=== PATIENT | female | born 1985 ===

== ENCOUNTER 2020-11-20 10:00 | Outpatient (REF) | payer BC, SELFPAY ==
--- NOTE | 2020-11-29 13:05 | MHC.AU.ANO ---
Adult Audiological Evaluation Date of Visit: 11/20/20 Reason for Appointment: Patient reports long-standing difficulty hearing from the left ear. She has been seen by [facility] Thro[facility] and has received imaging. An etiology has not been identified. Patient feels the hearing loss has a significant impact on her daily life and has caused communication difficulties. Ear History: Recent Ear Drainage: None Reported Recent Ear Pain: None Reported Family History of Hearing Loss?: Yes: Father Recent Ear Infections: None Reported Ear Infections in Childhood: Both Ears History of Ear Wax Buildup: None Reported Previous Ear Surgery: None Reported Bothersome Tinnitus/Ringing/Noises in Ears: None Reported Ear used on the phone: Right Ear Blocked/Full Sensation in Ear(s): None Reported History of occupational noise exposure?: No History: No Medical History: Medical History: Unremarkable Medical History Otoscopy: Right Ear: Unremarkable Left Ear: Abnormal appearing tympanic membrane Tympanometry: Tympanometry performed due to: To assess integrity of the middle ear system Right Ear: Hypercompliant Middle Ear System (Type Ad) Left Ear: Hypercompliant Middle Ear System (Type Ad) Hearing Evaluation: Transducer(s) Used: Insert Earphones Method: Conventional Audiometry Stimuli Used: Pure Tones Right Ear: Description of Hearing: Normal hearing Left Ear: Description of Hearing: Mild to moderate conductive hearing loss Speech Recognition Threshold (SRT): Method Used: Recorded Lists Stimuli Used: Spondee Words Right Ear: 10 dBHL Left Ear: 30 dBHL Word Discrimination: Method: Recorded Lists Word Lists Used: W-22 Right Ear: 100% at 50 dBHL Left Ear: 100% at 70 dBHL Most Comfortable Level (MCL): Right Ear: 50 dBHL Left Ear: 70 dBHL Recommendations: Audiological re-evaluation in one year. Trial with amplification is recommended. See Hearing Aid Evaluation report for more information. Diagnosis: Primary Diagnosis: H90.12 ConductiveHL, Unilateral Left Ear, W/Unrestricted Contralateral Signature: Provider: J Luis Bardales, [facility]
--- NOTE | 2020-11-29 13:25 | MHC.AU.ANO ---
Adult Audiological Evaluation Date of Visit: 11/20/20 Reason for Appointment: Patient reports long-standing difficulty hearing from the left ear. She has been seen by Ear, Nose, and Throat and has received imaging. An etiology has not been identified. Patient feels the hearing loss has a significant impact on her daily life and has caused communication difficulties. Ear History: Recent Ear Drainage: None Reported Recent Ear Pain: None Reported Family History of Hearing Loss?: Yes: Father Recent Ear Infections: None Reported Ear Infections in Childhood: Both Ears History of Ear Wax Buildup: None Reported Previous Ear Surgery: None Reported Bothersome Tinnitus/Ringing/Noises in Ears: None Reported Ear used on the phone: Right Ear Blocked/Full Sensation in Ear(s): None Reported History of occupational noise exposure?: No History: No Medical History: Medical History: Unremarkable Medical History Otoscopy: Right Ear: Unremarkable Left Ear: Abnormal appearing tympanic membrane Tympanometry: Tympanometry performed due to: To assess integrity of the middle ear system Right Ear: Hypercompliant Middle Ear System (Type Ad) Left Ear: Hypercompliant Middle Ear System (Type Ad) Hearing Evaluation: Transducer(s) Used: Insert Earphones Method: Conventional Audiometry Stimuli Used: Pure Tones Right Ear: Description of Hearing: Normal hearing Left Ear: Description of Hearing: Mild to moderate conductive hearing loss Speech Recognition Threshold (SRT): Method Used: Recorded Lists Stimuli Used: Spondee Words Right Ear: 10 dBHL Left Ear: 30 dBHL Word Discrimination: Method: Recorded Lists Word Lists Used: W-22 Right Ear: 100% at 50 dBHL Left Ear: 100% at 70 dBHL Most Comfortable Level (MCL): Right Ear: 50 dBHL Left Ear: 70 dBHL Interpretation of Results: Patient presents with left-sided mild to moderate conductive hearing loss. Patient had also heard about Auditory Processing Disorder and felt many of the symptoms matched her experiences. Auditory processing evaluations cannot be performed on individuals with known hearing loss. Auditory Processing Disorder is typically diagnosed when hearing difficulty is present and persistent, despite normal peripheral hearing and otherwise normal cognitive function. While not technically considered Auditory Processing Disorder, hearing loss in itself can lead to difficulty processing sound. If the brain is not receiving the full auditory signal, it can be difficult to make sense of what was heard. With single-sided hearing loss in particular, it can be quite difficult to understand speech in the presence of background noise, and it can be difficult to locate where sounds are coming from. Recommendations: Audiological re-evaluation in one year. Trial with amplification is recommended. See Hearing Aid Evaluation report for more information. Diagnosis: Primary Diagnosis: H90.12 ConductiveHL, Unilateral Left Ear, W/Unrestricted Contralateral Signature: Provider: JLuis Bardales, CCC-A
--- NOTE | 2020-11-29 13:30 | MHC.AU.MED ---
Medical Clearance for Hearing Instrumentation Date: 11/29/20 Patient Name: Michelle Del Rio Date of : 1985 Referring Provider: REAGAN Bobby We have seen your patient on 11/20/20 and have determined that they are a candidate for amplification (See accompanying report). Specifically, they would benefit from: Hearing aid use in the left ear There is a statute that addresses Medical Evaluation Requirements prior to fitting a patient with a hearing aid. According to [place] statute 265 CMR:6.03(1), (a) General. Except as provided in 265 CMR 6.03(1)(b), a probation manager shall not sell a hearing aid unless the prospective user has presented to the probation manager a written statement signed by a licensed physician that states that the patient's hearing loss has been medically evaluated and the patient may be considered a candidate for a hearing aid. The medical evaluation must have taken place within the preceding six months. Please note: Due to the [place] Statute referenced above, we cannot accept a signature other than that of a licensed physician. ASPHALT DAUBER and PA signatures cannot be accepted. I am in agreement with the above recommendation. There is no medical contraindication for hearing instrumentation. Physician Signature Date Physician Name (Printed)
== END 2020-11-20 10:01 | disposition home or self-care (01) ==
LOC: HO.SH 10:00
PROVIDERS: Visit Provider Nurse Practitioner Family
DX: H90.12 Conductive hearing loss, unilateral, left ear, with unrestricted hearing on the contralateral side (principal)
CPT/HCPCS: 92557; 92567

== ENCOUNTER 2020-11-20 11:08 | Outpatient (REF) | payer SELFPAY | END 2020-11-20 11:09 | disposition home or self-care (01) | LOC: HO.HAP 11:08 | PROVIDERS: Absent Provider Dentist General Practice; PCP Internal Medicine; Visit Provider Internal Medicine | DX: Z46.1 Encounter for fitting and adjustment of hearing aid (principal); H90.12 Conductive hearing loss, unilateral, left ear, with unrestricted hearing on the contralateral side | CPT/HCPCS: 92591 ==

== ENCOUNTER 2020-12-11 14:30 | Outpatient (REF) | payer SELFPAY ==
--- NOTE | 2020-12-11 15:24 | MHC.AU.HFL ---
Hearing Instrument Fitting- Adult- Left Ear Date of Visit: 12/11/20 Hearing Instrument(s) Dispensed: Left Ear: Box Toe Cementer: [employer] Model: Audeo P70-R Serial Number: [id number] Repair Warranty: 03/01/2024 Loss and Damage Warranty: 03/01/2024 Battery Size: Rechargeable Color: P1 Rental Salesperson: 1M Type of Dome: Small Power Dome Type of Wax Guard: Brigido Summary of Fitting: Feedback staffing branch manager was run. Verifit performed and levels adjusted to better reach targets. Patient felt it was slightly too loud- lowered target gain to 90%. Increased occlusion compensation to medium. Patient reported the sound was good and the volume was comfortable. Hearing aid care and maintenance discussed and practiced. Patient does not want to have the hearing aid paired to her phone at this time, as she typically uses it with her right ear. Recommendations: A hearing instrument follow-up was scheduled. Please call our clinic with any questions or concerns. BMP [employer] machine was not working at the time of the visit- will bill $2100 balance to patient. Diagnosis Code(s): Primary Diagnosis: H90.12 ConductiveHL, Unilateral Left Ear, W/Unrestricted Contralateral Signature: Provider: J Luis Bardales, [facility]
== END 2020-12-11 14:31 | disposition home or self-care (01) ==
LOC: HO.HAP 14:30
PROVIDERS: Visit Provider Nurse Practitioner Family
DX: Z46.1 Encounter for fitting and adjustment of hearing aid (principal); H90.12 Conductive hearing loss, unilateral, left ear, with unrestricted hearing on the contralateral side
CPT/HCPCS: V5257; V5299

== ENCOUNTER 2020-12-30 09:02 | Outpatient (REF) | payer SELFPAY | END 2020-12-30 09:03 | disposition home or self-care (01) | LOC: HO.HAP 09:02 | PROVIDERS: Visit Provider Internal Medicine | DX: Z13.89 Encounter for screening for other disorder (principal) ==

== ENCOUNTER 2021-11-28 08:25 | Outpatient (REF) | payer SELFPAY | END 2021-11-28 08:26 | disposition home or self-care (01) | LOC: HO.HAP 08:25 | PROVIDERS: Visit Provider Internal Medicine | DX: Z46.1 Encounter for fitting and adjustment of hearing aid (principal); H90.12 Conductive hearing loss, unilateral, left ear, with unrestricted hearing on the contralateral side | CPT/HCPCS: V5267 ==

== ENCOUNTER 2022-11-10 10:28 | Outpatient (REF) | payer SELFPAY ==
--- NOTE | 2022-11-10 11:51 | MHC.AU.HA3 ---
Hearing Instrument Follow-Up- Binaural Date of Visit: 11/10/22 Left Ear: Make, Model, Color, Serial Number: Maged Audeo P70-R SN: [id number] Color: Sand Beige Commodity Buyer Repair Warranty: 03/01/2024 Commodity Buyer Loss and Damage Warranty: 03/01/2024 [facility] Service Plan: 03/01/2024 Battery Size: Rechargeable Jewel Staker/Slim Tube: 1M Earmold/Dome/CShell/SlimTip: Medium power dome Type of Wax Guard: CeruShield Dispensed By: [facility] Date of Fittin12/11/2020 Follow-Up Summary: Michelle returned for routine hearing aid maintenance with no other issues or concerns at this time. Cleaned hearing aid and vacuumed microphones. Ran through dehumidifier. Replaced dome, wax guard, and retention tail. There was a medium power dome on the hearing aid even though all the previous notes report that she was fit with a small power dome. Michelle is unsure how/when it changed; however, she is comfortable with the medium power dome. Provided 1 small power dome, if needed. She also purchased 1 package of medium power domes. Also discussed frequency of changing wax guard as she was reportedly changing it weekly. Advised every 3-6 months or as needed. Recommendations: Hearing instrument follow-up or maintenance as needed. Diagnosis Code(s): Primary Diagnosis: H90.12 ConductiveHL, Unilateral Left Ear, W/Unrestricted Contralateral Signature: Provider: Roscoe Mann, [facility]
== END 2022-11-10 10:29 | disposition home or self-care (01) ==
LOC: HO.HAP 10:28
PROVIDERS: Visit Provider Internal Medicine
DX: H90.12 Conductive hearing loss, unilateral, left ear, with unrestricted hearing on the contralateral side (principal)
CPT/HCPCS: V5267